=== PATIENT | male | born 1995 | race American Indian/Alaskan Native ===

== ENCOUNTER 2021-11-27 12:43 | Outpatient (CLI) | payer OTHER ==
--- NOTE | 2021-11-27 14:24 | XRay Report ---
LEFT RING FINGER 3 VIEWS INDICATION / CLINICAL INFORMATION: LEFT HAND PAIN AND SWELLING COMPARISON: None available. FINDINGS: BONES / JOINT(S): No acute fracture or subluxation. No significant arthritis. SOFT TISSUES: There is soft tissue swelling about the left ring finger PIP joint. ADDITIONAL FINDINGS: None. Signer Name: Ronaldo Abraham MD Signed: 11/27/2021 2:18 PM Workstation Name: [email or web address]
== END 2021-11-27 12:44 | disposition home or self-care (01) ==
LOC: XRAY 12:43
PROVIDERS: ATTEND Psychiatry & Neurology Psychiatry
DX: M79.641 Pain in right hand (principal); M79.89 Other specified soft tissue disorders